=== PATIENT | male | born 1980 | race Caucasian/White ===

== ENCOUNTER 2017-08-10 15:31 | Outpatient (CLI) | payer BC ==
--- NOTE | 2017-08-10 16:51 | ULT ---
LEFT LOWER EXTREMITY VENOUS DOPPLER: 08/10/17 HISTORY: Fall a few months ago. Pain. Swelling. COMPARISON: None. TECHNIQUE: Realtime fernández scale, color doppler with spectral analysis of the left lower extremity venous system i s performed with the linear transducer. The common femoral, femoral, proximal portion of the greater saphenous, deep femoral veins as well as popliteal and posterior tibial veins were interrogated. Normal flow, augmentation and compression. In the popliteal region, is a well defined fluid collectio n containing some debris, likely retracting hematoma. IMPRESSION: 1. No deep venous thrombosis. 2. Likely liquifieed hematoma, large, within the deep soft tissues. Aspiration ultrasound guided may be helpful in this patient. POS: [facility]
== END 2017-08-10 15:32 | disposition home or self-care (01) ==
LOC: ULT 15:31
PROVIDERS: ATTEND Student in an Organized Health Care Education/Training Program
DX: M79.605 Pain in left leg (principal); R60.9 Edema, unspecified